=== PATIENT | male | born 1945 | race American Indian/Alaskan Native ===

== ENCOUNTER 2016-10-13 11:12 | Day surgery (SDC) | payer MEDICARE ==
[2016-08-13 15:27] VITALS: BMI 25.2
[2016-10-13 11:46] VITALS: O2SAT 99
[2016-10-13] MEDS ORDERED: Lidocaine 1% Inj (20ml) ONE ×3 (12:08→12:15)
[2016-10-13 15:26] VITALS: BP 136/60; PULSE 554; RESP 20; TEMP 98.6
== END 2016-10-13 14:05 | disposition home or self-care (01) ==
LOC: OPSURG 11:12
PROVIDERS: ATTEND Internal Medicine Medical Oncology
DX: D46.9 Myelodysplastic syndrome, unspecified (principal)

== ENCOUNTER 2017-01-25 13:53 | Emergency (ER) | payer MEDICARE ==
[2017-01-25 13:53] VITALS: BMI 25.2
--- NOTE | 2017-01-25 14:29 | ED PDOC ---
Arrival/HPI - General Historian: Patient - History of Present Illness Time/Duration: < week Symptom Onset: Sudden Symptom Course: Unchanged Activities at Onset: Rest Context: Home <Diogo Linares - Last Filed: 01/25/17 15:22> <AydeManuel - Last Filed: 01/25/17 18:40> - General Chief Complaint: Shortness Of Breath Time Seen by Provider: 01/25/17 14:05 - History of Present Illness Narrative History of Present Illness (Text): 01/25/17 14:27 71yo M PMH MDS, HTN and prostate CA s/p radiation, who presents with nasal congestion and shortness of breath x2 days, with productive cough. pt states that his sob is due to his congestion. +sick contacts at home with cold symptoms. pt denies fevers, chills, n/v/d, chest pain, palpitations, LE swelling , recent travel, rhinorrhea. pt did not receive flu vaccine. PMD: Dr. Angelo (Diogo Linares) Past Medical History - Provider Review Nursing Documentation Reviewed: Yes - Past History Past History: Non-Contributing - Infectious Disease Hx of Infectious Diseases: None - Cardiac Hx Cardiac Disorders: Yes Hx Hypertension: Yes - Pulmonary Hx Respiratory Disorders: No - Neurological Hx Neurological Disorder: No - HEENT Hx HEENT Disorder: No - Renal Hx Renal Disorder: No - Endocrine/Metabolic Hx Endocrine Disorders: No - Hematological/Oncological Hx Blood Transfusions: No Hx Blood Transfusion Reaction: No - Integumentary Hx Dermatological Disorder: No - Musculoskeletal/Rheumatological Hx Musculoskeletal Disorders: Yes - Gastrointestinal Hx Gastrointestinal Disorders: No - Genitourinary/Gynecological Hx Genitourinary Disorders: No - Psychiatric Hx Psychophysiologic Disorder: No Hx Substance Use: No - Surgical History Hx Appendectomy: Yes - Anesthesia Hx Anesthesia Reactions: No Hx Malignant Hyperthermia: No - Suicidal Assessment Feels Threatened In Home Enviroment: No <Diogo Linares - Last Filed: 01/25/17 15:22> Family/Social History - Physician Review Nursing Documentation Reviewed: Yes Family/Social History: No Known Family HX Smoking Status: Former Smoker Hx Alcohol Use: No Hx Substance Use: No <Diogo Linares - Last Filed: 01/25/17 15:22> Allergies/Home Meds <Diogo Linares - Last Filed: 01/25/17 15:22> <Manuel Messer - Last Filed: 01/25/17 18:40> Allergies/Adverse Reactions: Allergies trimethoprim Allergy (Unknown, Verified 01/25/17 14:01) FATIGUE reports LOC post bactrim administration. EMS evaluated pt at the time- responsive-no repiratory distress Home Medications: Home Meds Medication Instructions Recorded Confirmed Calcium Carbonate [Caltrate] 600 mg PO BID 10/24/14 01/25/17 Furosemide [Lasix] 40 mg PO BID 10/24/14 01/25/17 Montelukast [Singulair] 10 mg PO DAILY 10/24/14 01/25/17 Spironolactone [Aldactone] 25 mg PO DAILY 10/24/14 01/25/17 Aspirin [Ecotrin] 81 mg PO DAILY 11/10/15 01/25/17 Etodolac 500 mg PO BID 11/10/15 01/25/17 Metoprolol Tartrate [Lopressor] 50 mg PO BID 11/10/15 01/25/17 Leuprolide [Lupron Depot] 7.5 mg IM Q4M 01/25/17 01/25/17 Losartan [Cozaar] 50 mg PO DAILY 01/25/17 01/25/17 Review of Systems - Physician Review All systems were reviewed & negative as marked: Yes - Review of Systems Constitutional: absent: Fevers ENT: Sinus Congestion. absent: Sore Throat, Rhinorrhea Respiratory: SOB, Cough, Sputum (clear). absent: Wheezing Cardiovascular: absent: Chest Pain, Palpitations Gastrointestinal: absent: Abdominal Pain, Diarrhea, Nausea, Vomiting <Diogo Linares - Last Filed: 01/25/17 15:22> Physical Exam Vital Signs Reviewed: Yes Appearance: Positive for: Well-Appearing Pain Distress: None Mental Status: Positive for: Alert and Oriented X 3 - Systems Exam Head: Present: Atraumatic, Normocephalic Pupils: Present: PERRL Extroacular Muscles: Present: EOMI Conjunctiva: Present: Normal Mouth: Present: Moist Mucous Membranes Neck: Present: Normal Range of Motion. No: Lymphadenopathy Respiratory/Chest: Present: Clear to Auscultation, Good Air Exchange. No: Respiratory Distress, Accessory Muscle Use, Wheezes Cardiovascular: Present: Regular Rate and Rhythm, Normal S1, S2 Abdomen: Present: Normal Bowel Sounds. No: Tenderness, Distention Back: Present: Normal Inspection. No: CVA Tenderness Upper Extremity: Present: Normal Inspection, Normal ROM Lower Extremity: Present: Normal Inspection. No: Edema, CALF TENDERNESS Neurological: Present: CN II-XII Intact, Speech Normal, Motor Func Grossly Intact, Normal Sensory Function Skin: Present: Warm, Dry, Normal Color. No: Rashes Lymphatic: Present: Cervical Adenopathy Psychiatric: Present: Alert, Oriented x 3 <Diogo Linares - Last Filed: 01/25/17 15:22> Vital Signs Temp Pulse Resp BP Pulse Ox 01/25/17 17:58 98.3 F 63 16 112/58 L 01/25/17 17:40 98.5 F 59 L 16 110/61 01/25/17 17:19 67 18 110/61 98 01/25/17 14:24 18 100 01/25/17 14:07 98.6 F 65 22 112/58 L 98 Medical Decision Making <Diogo Linares - Last Filed: 01/25/17 15:22> - EKG Interpretation Interpreted by ED Physician: Yes Type: 12 lead EKG <Manuel Messer - Last Filed: 01/25/17 18:40> ED Course and Treatment: 01/25/17 15:16 Impression: 71yo M with PMH MDS who presents with congestion and sob x2 days Plan: - Reassessment and Disposition - CXR - EKG - Cardiac ISO - UA - LABS Progress: 01/25/17 15:22 CXR shows no active disease EKG shows NSR @ 63bpm (Diogo Linares) 01/25/17 14:52 Patient Seen With Resident: In agreement with resident note which contains more details about the patient. Patient was seen and evaluated with resident. Came up with plan and treatment together. A 71 year male with shortness of breath. On my exam he reports nasal congestion and feels "like I can't breathe out of my nose". He denies chest pain. Reports occasional phlegm but no productive sputum. Denies chest pain or any pleuritic discomfort. No facial swelling noted. No stridor or hypoxia or wheezing noted. Labs significant for low WBC and low hemoglobin. Patient does have a history of MDS, thus I discussed labs directly with his technical marketing consultant Dr. Ortiz, who evaluated patient recently. I reviewed patient's blood counts with Dr. Ortiz. Due to anemia, Dr. Ortiz has requested one unit of prbc be transfused in ED. Patient agreeable to this, does admit to some fatigue over the past several weeks. Denies bleeding or melena. He is cv stable in ED. Afebrile, not toxic appearing, no chills. Exam NOT consistent with sepsis and patient is afebrile in ED. Risks/benefits of transfusion reviewed with patient, consent obtained. Blood transfusion ordered. Dr. Ortiz will follow-up with patient TOMORROW at his office. As per Dr. Ortiz, patient has been instructed to discontinue his Revlimid given his abnormal lab results. 01/25/17 18:39 Re-exam. Patient tolerating transfusion without difficulty or adverse effect. He has been advised of treatment plan, which is to take antibiotics and follow- up with Dr. Ortiz tomorrow. Still awaiting complete of transfusion at this time. (Manuel Messer) - Lab Interpretations Lab Results: 01/25/17 14:25 01/25/17 14:25 Lab Results 01/25/17 16:10: Blood Type Confirm AB POSITIVE 01/25/17 15:00: Blood Type AB POSITIVE, Antibody Screen Negative, Crossmatch See Detail, BBK History Checked No verified bt 01/25/17 14:25: PT 11.8, INR 1.09 H, APTT 27.7 01/25/17 14:25: Sodium 142, Chloride 105, Potassium 3.5 L, Carbon Dioxide 26, Anion Gap 15, BUN 13, Creatinine 1.2, Est GFR ( Amer) > 60, Est GFR (Non- Af Amer) 60, Random Glucose 85, Calcium 9.5, Total Bilirubin 0.8, AST 28, ALT 35 , Alkaline Phosphatase 59, Lactate Dehydrogenase 495, Total Creatine Kinase 241 H, CK-MB (CK-2) 1.5, CK-MB (CK-2) % Cancelled, Troponin I < 0.01, NT-Pro-B Natriuret Pep 335, Total Protein 6.9, Albumin 3.7, Globulin 3.2, Albumin/ Globulin Ratio 1.2 01/25/17 14:25: pO2 146 H, VBG pH 7.41, VBG pCO2 47.0, VBG HCO3 29.8 H, VBG Total CO2 31.2 H, VBG O2 Sat (Calc) 100.1 H, VBG Base Excess 4.3 H, VBG Potassium 3.3 L, Sodium 141.0, Chloride 109.0 H, Glucose 90, Lactate 1.3, FiO2 21.0, Venous Blood Potassium 3.3 L 01/25/17 14:25: WBC 0.9 L* D, RBC 2.36 L, Hgb 7.6 L, Hct 23.0 L, MCV 97.5, MCH 32.2, MCHC 33.0, RDW 16.5 H, Plt Count 59 L, Gran % 5.4 L, Lymph % (Auto) 72.0 H , Gregg % (Auto) 22.6 H, Eos % (Auto) 0.0 L, Baso % (Auto) 0.0, Gran # 0.05 L, Lymph # 0.7 L, Gregg # 0.2, Eos # 0.0, Baso # 0.00, Neutrophils % (Manual) Pending, Lymphocytes % (Manual) Pending, Monocytes % (Manual) Pending - RAD Interpretation Radiology Orders: 01/25/17 14:24 CHEST TWO VIEWS (PA/LAT) [RAD] Stat - EKG Interpretation EKG Interpretation (Text): 01/25/17 16:33 EKG at 14:01 normal sinus rhythm rate of [address] elevations (Manuel Messer) <Diogo Linares - Last Filed: 01/25/17 15:22> - Scribe Statement The provider has reviewed the documentation as recorded by the Scribe <Manuel Messer - Last Filed: 01/25/17 18:40> - Scribe Statement Erin Nguyen Provider Scribe Attestation: All medical record entries made by the Scribe were at my direction and personally dictated by me. I have reviewed the chart and agree that the record accurately reflects my personal performance of the history, physical exam, medical decision making, and the department course for this patient. I have also personally directed, reviewed, and agree with the discharge instructions and disposition. (Manuel Messer) Disposition/Present on Arrival - Present on Arrival History of DVT/PE: No History of Uncontrolled Diabetes: No Urinary Catheter: No History of Decub. Ulcer: No History Surgical Site Infection Following: None <Diogo Linares - Last Filed: 01/25/17 15:22> - Present on Arrival Any Indicators Present on Arrival: No - Disposition Have Diagnosis and Disposition been Completed?: Yes Disposition Time: 16:34 Patient Plan: Observation <Manuel Messer - Last Filed: 01/25/17 18:40> - Disposition Diagnosis: Anemia, Decreased white blood cell count, Thrombocytopenia, Sinusitis Disposition: HOME/ ROUTINE Patient Problems: Current Active Problems Problem Status Onset Anemia Acute Decreased white blood cell count Acute Sinusitis Acute Thrombocytopenia Acute Condition: GOOD Forms: [facility] [employer] ([place]ian)
[2017-01-25 14:45] LABS: VENOUS BLOOD GAS BASE EXCESS 4.3 mmol/L (0.0-2.0); VENOUS BLOOD PH 7.41 (7.32-7.43)
[2017-01-25 14:50] LABS: GRAN # 0.05 (1.4-6.5); GRAN % 5.4 % (50.0-68.0); LYMPH # 0.7 (1.2-3.4); MEAN CELL VOLUME 97.5 fl (80.0-105.0); MEAN CORPUSCULAR HEMOGLOBIN 32.2 pg (25.0-35.0); MONO # 0.2 (0.1-0.6); MONO % 22.6 % (1.0-6.0); PLATELET COUNT 59 10^3/uL (120.0-450.0); RED CELL DISTRIBUTION WIDTH 16.5 % (11.5-14.5)
[2017-01-25 14:56] LABS: ALB/GLOB RATIO 1.2 (1.1-1.8); ALKALINE PHOSPHATASE 59 U/L (38-126); ALT/SGPT 35 U/L (7-56); AST/SGOT 28 U/L (17-59); BILIRUBIN,TOTAL 0.8 mg/dL (0.2-1.3); BLOOD UREA NITROGEN 13 mg/dL (7-21); CALCIUM 9.5 mg/dL (8.4-10.5); CARBON DIOXIDE 26 mmol/L (21-33); CHLORIDE 105 mmol/L (98-107); GFR AFRICAN-AMERICAN > 60; GLUCOSE,RANDOM 85 mg/dL (70-110); POTASSIUM 3.5 mmol/L (3.6-5.0); SODIUM 142 mmol/L (132-148); TOTAL PROTEIN 6.9 g/dL (5.8-8.3)
[2017-01-25 14:57] LABS: INR 1.09 (0.93-1.08); PARTIAL THROMBOPLASTIN TIME 27.7 Seconds (23.7-30.8)
--- NOTE | 2017-01-25 15:05 | RAD ---
HISTORY: COMPARISON: 12/27/2015 TECHNIQUE: Chest PA and lateral FINDINGS: LINES AND TUBES: None. LUNG AND PLEURA: The lungs are well inflated and clear. HEART AND MEDIASTINUM: The heart is not enlarged. The hilar and mediastinal contours are within normal limits. SKELETAL STRUCTURES: The bony structures are within normal limits for the patient's age. VISUALIZED UPPER ABDOMEN: Normal. OTHER FINDINGS: None. IMPRESSION: No active pulmonary disease.
[2017-01-25 15:07] LABS: TROPONIN I < 0.01 ng/mL
[2017-01-25 15:08] LABS: WHITE BLOOD COUNT 0.9 10^3/ul (4.5-11.0)
[2017-01-25] MEDS ORDERED: Potassium Chloride 20 mEq ER Tab PO STA (19:11)
[2017-01-25 20:53] VITALS: PULSE 59; RESP 18; TEMP 98.6; O2SAT 100
[2017-01-25 20:54] VITALS: BP 113/54
[2017-01-26 00:24] LABS: ATYPICAL LYMPHOCYTE 1 % (0.0-0.0); NEUTROPHIL 7 % (50.0-70.0); PLATELET ESTIMATE LOW (NORMAL); POIKILOCYTOSIS SLIGHT
--- NOTE | 2017-01-26 11:08 | CARD ---
APPROVED REPORT EKG Measurement Heart [id number] <Conclusion> Normal sinus rhythm Normal ECG
== END 2017-01-25 21:07 | disposition home or self-care (01) ==
LOC: ED 13:53
DX: D64.9 Anemia, unspecified (principal); D72.819 Decreased white blood cell count, unspecified; D69.6 Thrombocytopenia, unspecified; J32.9 Chronic sinusitis, unspecified; I10 Essential (primary) hypertension; Z87.891 Personal history of nicotine dependence
CPT/HCPCS: 36430; 71020; 80053; 82550; 82553; 82803; 83615; 83880; 84484; 85025; 85610; 85730; 86850; 86900; 86920; 93005; 99285; P9016